=== PATIENT | male | born 1995 | race Caucasian/White ===

== ENCOUNTER 2020-02-08 16:11 | Emergency (ER) | payer BC, SELFPAY ==
[2020-02-08 16:17] VITALS: BP 131/83; PULSE 120; RESP 16; TEMP 36.5; O2SAT 97
[2020-02-08 16:20] VITALS: RESP 16
[2020-02-08 17:20] LABS: Abs Immature Grans 0.02 k/cumm (0.0-0.09); Absolute Basophil Count 0.07 k/cumm (0.0-0.2); Absolute Eosinophil Count 0.61 k/cumm (0.0-0.7); Absolute Lymphocyte Count 3.29 k/cumm (1.2-3.4); Absolute Neutrophil Count 4.03 k/cumm (1.2-6.7); Basophils % 0.8; Eosinophils % 6.9; HCT 47.8 % (40.0-50.0); HGB 16.9 g/dL (13.5-17.5); Immature Grans % 0.2 %; Lymphocytes % 37.3; Mean Corp. HGB Concentration 35.4 g/dL (32.0-36.0); Mean Corpuscular Hemoglobin 29.2 pg (27.0-33.0); Mean Corpuscular Volume 82.7 fL (80-95); Mean Platelet Volume 10.1 fL (8.0-11.0); Monocytes % 9.1; Neutrophils % 45.7; Platelet Count 255 x1000/uL (130-400); RBC 5.78 m/cumm (4.50-6.00); RBC Distribution Width 12.7 % (11.8-14.1); White Blood Cell Count 8.82 k/cumm (4.4-10.8)
[2020-02-08 17:33] LABS: ALT 27 U/L (16-63); AST 16 U/L (15-37); Albumin 4.4 g/dL (3.4-5.0); Alkaline Phosphatase 50 U/L (46-116); Anion Gap 8.2 mmol/L (3-11); BUN 13 mg/dL (7-18); Bilirubin, Total 0.4 mg/dL (0.2-1.0); CO2 28.8 mmol/L (21.0-32.0); CREATININE 0.85 mg/dL (0.70-1.30); Calcium 9.2 mg/dL (8.5-10.1); Chloride 102 mmol/L (98-107); Glucose 88 mg/dL (74-106); Potassium 3.5 mmol/L (3.5-5.1); Sodium 139 mmol/L (136-145); Total Protein 7.8 g/dL (6.4-8.2)
--- NOTE | 2020-02-08 17:36 | W.ED.GENAD ---
Discharge Plan Disposition Patient Disposition: HOME Condition: Stable Discharge Details Chief Complaint: GenMedical Clinical Impression: Anxiety Primary Care Provider: None,None ED Provider: Alise Pickard Home Meds and New Rx's Prescriptions: New ondansetron HCl [Zofran] 4 mg tablet 4 mg PO Q8H PRN (Reason: nausea and vomiting) Qty: 7 RF: 0 Discharge Instructions Instructions: Anxiety (ED) Additional Instructions: Please try to maintain a regular sleep pattern. I encourage at least 3 days of outdoor activity. Follow-up with outpatient counselor as discussed. Use nausea medication as needed for severe nausea associated with anxiety if deferring you from eating as discussed. For worsening symptoms, safety concerns, continued or alarming weight loss or abdominal complaints have reevaluation in the emergency room. Please follow-up with an outpatient primary care doctor. We will help arrange for local primary care doctor. Return if needed sooner for alarming or worsening concerns Stand Alone Forms: Work Release Medical Decision Making Is a very pleasant 25-year-old patient presenting to the emergency room for concerns of weight loss. After long discussion with the patient he reveals that he is undergoing significant stress and anxiety recently. Patient reports he is transitioning from male to female in the last 2 months. 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 Patient reports he is working second shift and hours are quite late he is standing for long periods of time. Patient reports stress dealing with the public during Covid which is also causing increased anxiety. Patient is also frustrated as people as they come through the drive-through are identifying him as a mail when he feels they should be identifying him as a female. Patient reports a very different sleep pattern as he is up very late working his new job. Patient reports baseline anxiety and depression for which she has worked with mental health for years however has not been working with a counselor recently as he prefers [id number] interactions and has struggled finding a counselor that he works well with. Patient reports he has many coping skills and feels comfortable managing his anxiety predominantly using marijuana, THC or CBD. Patient has been on medication previously but he found unwanted side effects and prefers the use of THC or CBD. Patient reports he does note nausea and occasional diarrhea when feeling anxious. Patient reports he has experienced some nausea and diarrhea intermittently which has sometimes interfered with his ability to eat when he is finding his anxiety is severe however this is typical of what she has experienced in the past and he feels this is likely attributed to his anxiety. Patient reports he has lost approximately 10 to 20 pounds in the last few weeks. He does report he has been attempting to lose weight in certain areas due to his transition however feels the weight loss could be due to anxiety, change in sleep habits. Patient denies suicidality or homicidality. Does report chronic depression and anxiety. Declines mental health evaluation at this time and feels safe. Patient's physical exam reveals no acute abnormalities. Very benign abdominal exam. Patient is in general healthy appearing. Initial vital signs do reveal a heart rate of 120 although patient does report sensation of anxiety. We did discuss use of oral medications which patient has taken in the past however he declines any anxiety prescriptions as he would prefer to continue use of marijuana for anxiety relief. I did discuss use of marijuana with this patient at length and cautioned him regarding overuse which could in turn induce anxiety. Patient reports his understanding. We also discussed the use of prescription nausea medication which patient does consent to as he feels this would be helpful when experiencing nausea deferring him from eating. We also discussed maintaining a healthy diet as patient has been eating [employer] 5 days a week at work. During Covid they have removed majority of their healthy foods off of the menu and patient finds this to be a barrier and eating healthy. Discussed becoming more active outdoors for mental health purposes as patient is feeling extremely isolated. Patient's labs are reviewed and are normal CBC normal and CMP normal. Discussed these results with the patient. Vital signs repeated and are normal. Patient feels comfortable discharge home at this time. We will plan to provide prescription for nausea medication if needed. Patient again was offered mental health evaluation and again does not feel it is necessary this evening but after discussion does feel that arranging for an outpatient counselor could be temporarily helpful as he is dealing with significant increase in his stress and large life changes. Patient agrees to follow-up with outpatient counselor. Will contact mental health to arrange for outpatient services. Patient also has no local primary care provider. Will place patient on the primary care nurse follow-up list to arrange for local PCP as he is undergoing transition from male to female I feel having PCP assistance would be helpful especially if patient begins to undergo hormone use. Patient agrees with this plan of care. Patient feels comfortable discharge home at this time. Spoke with Jacquelyn who does have the patient in the system but has followed up with this patient. She will help arrange for outpatient services and follow-up for patient's anxiety. patient was stable and requested discharge. Prior to discharge, my usual and customary return precautions were reviewed with the patient - this included follow-up instructions and reasons to return to the Emergency Department if conditions worsens, does not improve as expected, or other new concerns arise. HPI General Date/Time Provider Initiated Documentation: 02/08/20 16:23. HPI Narrative: Is a 25-year-old patient presenting to the emergency room for complaints of weight loss. Patient reports approximately 10 to 20 pounds of weight loss noted in the last few weeks. Patient has been attempting to lose weight however is concerned due to the acute weight loss. Patient does report that he does have mild nausea which he attributes to baseline anxiety. Patient reports he has had significant life stressors in the last few months. Patient reports significant anxiety regarding Covid as he is exposed to the public. 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 Patient reports use standing for long periods of time which is a changing his normal activity as he has recently been quite sedentary prior to obtaining this job. Patient report significant change to his sleeping patterns as he is working second shift which is a challenging adjustment. Patient reports he is currently transitioning from male to female in the last 2 months. Patient reports significant anxiety regarding all of these previously mentioned changes in the last 2 months. Patient reports he is able to eat and drink without significant difficulty. He does report intermittent nausea which occasionally will divert him from eating although he denies abdominal pain when eating. Denies significant bowel changes. He does report with his anxiety he occasionally have bouts of diarrhea. Patient does report a bout of diarrhea in the last 24 hours however otherwise has been maintaining normal bowel movements. Patient denies abdominal or back pain. Denies fevers or chills. Denies difficulty breathing shortness of breath or wheezing. Patient reports he is feeling quite anxious and intermittently depressed. Patient reports he has been working with counselors since a young age but has not been working with counselors in the few months as he prefers [id number] interactions. Patient denies suicidality or homicidality. Does not feel he requires mental health evaluation at this time. Related Data Home Medications Medication Instructions Recorded Confirmed ondansetron HCl [Zofran] 4 mg PO Q8H PRN #7 tab 02/08/20 Previous Rx's Medication Instructions Recorded ondansetron HCl [Zofran] 4 mg PO Q8H PRN #7 tab 02/08/20 Allergies Allergy/AdvReac Type Severity Reaction Status Date / Time apple Allergy Mild Unverified 02/08/20 16:25 peach Allergy Mild Unverified 02/08/20 16:25 horses Allergy Severe Anaphylaxsi Uncoded 05/22/17 13:29 s animal dander Allergy Mild sneezing Uncoded 05/22/17 13:29 General Stated Complaint: GenMedical JENNIFER: 3 Review of Systems All systems reviewed & are unremarkable except as noted in HPI and below Constitutional Constitutional: Denies chills, Denies fatigue, Denies fever(s), Denies headache(s), Denies malaise and Denies poor appetite ENT Ears, Nose, Mouth, and Throat: Denies headache(s), Denies nasal discharge and Denies sore throat Cardiovascular Cardiovascular: Denies dyspnea Respiratory Respiratory: Denies cough, Denies dyspnea and Denies wheezing Gastrointestinal Gastrointestinal: Denies abdominal pain, Denies diarrhea, Reports nausea and Denies vomiting Genitourinary Genitourinary: Denies dysuria, Denies urinary frequency and Denies urinary hesitancy Musculoskeletal Musculoskeletal: Denies back pain Neurologic Neurologic: Denies headache(s) Psychiatric Psychiatric: Reports abnormal sleep pattern, Reports anxiety, Reports depression, Denies difficulty concentrating, Reports mood swings, Denies panic attacks, Denies paranoia, Denies homicidal ideation and Denies suicidal ideation Endocrine Endocrine: Denies fatigue Allergic/Immunologic Allergic/Immunologic: Denies wheezing PFSH Social History Smoking/Tobacco Use Status: Current every day Tobacco Type: cigarettes Alcohol Intake: current Alcohol Intake frequency: holidays/special occasions only Drug use: Occasionally Substance use type: marijuana Do you feel safe at home: Yes Do you feel safe in your relationship?: Yes Exam Narrative Exam Narrative: CONST: Healthy appearing patient, in no acute distress. Well hydrated. Alert and oriented. HENMT: Head nomocephalic, normal to inspection. Atraumatic. Hearing grossly normal. Mild pharyngeal erythema present without exudates. EYES: General normal appearance. Alignment normal. Eyelids normal. Conjunctiva normal. NECK: Normal visual inspection. FROM. Trachea midline. No Midline tenderness. CHEST: Normal insepection of the chest. RESP: Normal respiratory effort. Speaking full sentences. No cough. No audible wheezing. No retractions. Breath sounds clear, full and equal bilaterally. No wheezing, rhonchi or rales. CARDIO: No JVD. No murmur. Regular rate and rhythm GI: Bowel sounds present in all 4 quadrants. Abdomen is soft, nontender. No peritoneal signs, rebound or guarding. Back: No CVA tenderness noted bilaterally NEURO: Alert and awake. Speech clear. PSYCH: Normal affect. Cooperative. Course Vital Signs Vital signs: Vital Signs Temperature 36.5 C 02/08/20 16:17 Pulse 120 H 02/08/20 16:17 Respiratory Rate 16 02/08/20 16:17 Blood Pressure 131/83 02/08/20 16:17 Pulse Oximetry 97 02/08/20 16:17 Temperature 36.5 C 02/08/20 16:17 Temperature Source Tympanic 02/08/20 16:17 Pulse 120 H 02/08/20 16:17 Respiratory Rate 16 02/08/20 16:20 Respiratory Effort Non-Labored 02/08/20 16:20 Respiratory Depth Normal 02/08/20 16:20 Respiratory Pattern Normal 02/08/20 16:20 Blood Pressure 131/83 02/08/20 16:17 Blood Pressure Position Sitting 02/08/20 16:17 Pulse Oximetry 97 02/08/20 16:17 Oxygen Delivery Method Room Air 02/08/20 16:17 Oxygen Flow Rate 0 02/08/20 16:17 Pain Level 0 02/08/20 16:17 Lab/Test Results Lab/Test Results: Laboratory Tests Range/Units 02/08/20 17:10 WBC (4.4-10.8) k/cumm 8.82 RBC (4.50-6.00) m/cumm 5.78 Hgb (13.5-17.5) g/dL 16.9 Hct (40.0-50.0) % 47.8 MCV (80-95) fL 82.7 MCH (27.0-33.0) pg 29.2 MCHC (32.0-36.0) g/dL 35.4 RDW (11.8-14.1) % 12.7 Plt Count (130-400) x1000/uL 255 MPV (8.0-11.0) fL 10.1 Immature Gran % % 0.2 Neutrophils % 45.7 Lymphocytes % 37.3 Monocytes % 9.1 Eosinophils % 6.9 Basophils % 0.8 Absolute Neutrophils (1.2-6.7) k/cumm 4.03 Absolute Lymphocytes (1.2-3.4) k/cumm 3.29 Absolute Monocytes (0.11-0.7) k/cumm 0.80 H Absolute Eosinophils (0.0-0.7) k/cumm 0.61 Absolute Basophils (0.0-0.2) k/cumm 0.07
[2020-02-08 17:50] VITALS: BP 106/65; PULSE 65; RESP 16; TEMP 36.8; O2SAT 98
--- NOTE | 2020-02-08 18:00 | NUR.NOTE ---
referred to CM for PCP within a week. 02/08/2020 Nursing Note:
--- NOTE | 2020-02-10 10:18 | PDOC.ERCMACT ---
- If Service Date Differs Date of service: 02/10/20 Time of Service: 10:18 Care Management Activity Note At the request of ED provider, CM coordinates referral to [facility] to assist patient in establishing care with a primary care physician.
== END 2020-02-08 18:09 | disposition home or self-care (01) ==
PROVIDERS: Emergency Provider Physician Assistant; PCP Nurse Practitioner Adult Health
DX: F41.8 Other specified anxiety disorders (principal)
CPT/HCPCS: 36415; 80053; 99284; 85025

== ENCOUNTER 2020-06-19 17:54 | Emergency (ER) | payer SELFPAY ==
--- NOTE | 2020-06-19 17:58 | ED.GENADUL_ITS ---
Discharge Plan Disposition Patient Disposition: HOME Condition: Good Discharge Details Chief Complaint: HeadInjury Clinical Impression: Contusion of head Primary Care Provider: Floridalma Cardenas ED Provider: Areli Malik Home Meds and New Rx's Prescriptions: No Action No Known Home Meds RF: 0 Discharge Instructions Instructions: Contusion in Adults (ED) Additional Instructions: Your exam is reassuring today. You are cleared to go back to work. He may use Tylenol and/or ibuprofen as needed if you develop any recurrent discomfort. Please follow-up with primary care as needed. If he develop any new or worsening symptoms please seek care urgently once again. Referrals: Floridalma Cardenas, CONVERSION DEVELOPER [Primary Care Provider] - Discharge Data Discharge Date/Time-TO BE ENTERED AT DEPARTURE: 06/19/20 18:20 Medical Decision Making Patient is a 25-year-old male presents today with chief complaint of striking head while at work yesterday. Patient reports that repetitively struck his head against the corner of a shelf. No loss of consciousness. States that at that time, after the third time, she experienced some lightheadedness of dizziness. However, the symptoms have totally resolved. No complaints today. Denies any headache or visual changes. No nausea or vomiting. Is not noted any focal weakness. No other injury extremity incident. Neurologic exam is intact. No evidence of trauma on exam. Patient is primarily here for work note as he left early yesterday. Will give work note and discharged home. He is given return precautions. All questions/concerns were addressed, he is in agreement with this plan. HPI General Mode of arrival: ambulatory . Date/Time Provider Initiated Documentation: 06/19/20 17:58 . Limitations to Documentation: no limitations . Information obtained by: patient and RN notes reviewed . History of Present Illness 25 year old M presents to the emergency department with the chief complaint of struck head at work yesterday, described as mild (denies any pain or other symptoms), and is localized to the head. Patient reports no radiation. Patient started experiencing this day(s) (1) and it has been now resolved. No relieving factors improve symptom(s), No exacerbating factors reported . Patient notes no other symptoms.. Patient did receive the following treatments prior to arrival, none Related Data Home Medications Medication Instructions Recorded Confirmed Unknown [No Known Home Meds] 06/19/20 06/19/20 Allergies Allergy/AdvReac Type Severity Reaction Status Date / Time apple Allergy Mild Unverified 06/19/20 18:20 peach Allergy Mild Unverified 06/19/20 18:20 horses Allergy Severe Anaphylaxsi Uncoded 06/19/20 18:20 s animal dander Allergy Mild sneezing Uncoded 06/19/20 18:20 General JENNIFER: 3 Review of Systems Constitutional Constitutional: Reports as per HPI, Denies chills, Reports fatigue, Denies fever(s), Denies frequent falls, Reports headache(s), Denies snoring and Denies weakness Eyes Eyes: Reports as per HPI, Denies blurry vision, Denies change in vision and Reports photophobia ENT Ears, Nose, Mouth, and Throat: Denies vertigo, Reports headache(s) and Denies neck pain Cardiovascular Cardiovascular: Reports as per HPI, Denies chest pain, Denies lightheadedness, Denies radiating jaw, neck or arm pain, Denies dyspnea and Denies dyspnea on exertion Respiratory Respiratory: Reports as per HPI, Denies chest congestion, Denies cough, Denies dyspnea, Denies dyspnea on exertion, Denies snoring, Denies stridor and Denies wheezing Gastrointestinal Gastrointestinal: Reports as per HPI, Denies abdominal pain, Denies change in bowel habits, Denies nausea and Denies vomiting Genitourinary Genitourinary: Reports system reviewed and no additional complaints, except as documented (denies change in urinary habits) Musculoskeletal Musculoskeletal: Reports as per HPI, Denies back pain, Denies myalgias, Denies muscle cramps, Denies neck pain and Denies numbness Integumentary/Breasts Skin/Breast: Reports as per HPI and Denies rash Neurologic Neurologic: Reports as per HPI, Denies abnormal movements, Denies abnormal speech, Denies behavioral changes, Denies confusion, Denies vertigo, Denies frequent falls, Reports headache(s), Denies localized weakness, Denies numbness, Denies sensory deficit and Denies weakness Psychiatric Psychiatric: Denies behavioral changes and Denies confusion Endocrine Endocrine: Reports fatigue Allergic/Immunologic Allergic/Immunologic: Denies wheezing PFSH Medical History (Updated 06/19/20 @ 18:08 by HANNAH Hernandes) Anxiety (Inactive) Social History (Reviewed 02/15/20 @ 16:54 by GEORGINA Castro Smoking/Tobacco Use Status: Current every day Tobacco Type: cigarettes Alcohol Intake: current Alcohol Intake frequency: holidays/special occasions only Drug use: Occasionally Substance use type: marijuana current occupation: [employer] Current gender identity: trans [id number] Other: Uses she/her pronouns Do you feel safe at home: Yes Do you feel safe in your relationship?: Yes Exam Const General: cooperative, healthy appearing, comfortable, no acute distress, well developed and well groomed Nutritional Appearance: average body habitus and well nourished Orientation: alert, awake and oriented x3 HENMT Head: normal to inspection, no palpable skull fracture, normocephalic and atraumatic Ears: hearing grossly normal bilaterally, external ears normal and TM's normal bilaterally General nose exam: external nose normal Mouth: oral mucosae normal and moist mucous membranes Throat: posterior oropharynx normal Eyes General: appearance normal, both eyes and all related structures Alignment and Position: alignment normal Periorbital: periorbital findings normal Eyelids: eyelids normal Sclera: sclerae normal Cornea: corneas normal Pupils: PERRL EOM: EOM intact bilaterally Neck Neck: normal visual inspection, full ROM, no lymphadenopathy and no meningeal signs Resp Effort & Inspection: normal respiratory effort, able to speak in complete sentences and no respiratory distress Auscultation: clear to auscultation bilaterally, no rales, no rhonchi and no wheezes Cardio Rate: regular rate Rhythm: regular rhythm Heart Sounds: S1 normal and S2 normal GI Inspection: normal to inspection and non-distended Palpation: soft, no hepatosplenomegaly, not firm, no guarding, not rigid and nontender Percussion: normal to percussion Auscultation: normal bowel sounds Back/Spine/Pelvis Cervical Spine: normal cervical lordosis and cervical ROM normal Skin General skin exam: no rashes or lesions noted Neuro General: patient alert, patient awake and patient oriented x3 Cranial Nerves: CN's II-XI intact bilaterally Cognition: normal cognition Speech: speech normal Gait: normal gait Motor: muscle tone normal throughout, strength 5/5 throughout, no pronator drift, no movement abnormalities noted and no fasciculations Sensory Exam: no sensory deficits noted Coordination: [id number] test normal and [id number] test normal Extrem General: normal to inspection, capillary refill normal, no pedal edema and no calf tenderness Psych Appearance: grossly normal and well kempt Mental Status: mental status grossly normal Speech and Movement: speech and movement normal
[2020-06-19 18:12] VITALS: BP 120/83; PULSE 85; RESP 16; TEMP 36.6; O2SAT 97
== END 2020-06-19 18:20 | disposition home or self-care (01) ==
LOC: ER 18:30
PROVIDERS: Emergency Provider Physician Assistant; PCP Nurse Practitioner Adult Health
DX: S00.93XA Contusion of unspecified part of head, initial encounter (principal); W22.09XA Striking against other stationary object, initial encounter; R42 Dizziness and giddiness; R11.0 Nausea; Z02.79 Encounter for issue of other medical certificate
CPT/HCPCS: 99282; 99283

== ENCOUNTER 2020-07-04 13:08 | Emergency (ER) | payer OTHER, SELFPAY ==
[2020-07-04 13:17] VITALS: BP 122/72; PULSE 98; RESP 18; TEMP 36.8; O2SAT 98
--- NOTE | 2020-07-04 13:18 | ED.GENADUL_ITS ---
Discharge Plan Disposition Patient Disposition: HOME Condition: Stable Discharge Details Clinical Impression: Fatigue, Poor sleep pattern Primary Care Provider: Floridalma Cardenas ED Provider: Indigo Galarza Home Meds and New Rx's Prescriptions: No Action No Known Home Meds RF: 0 Discharge Instructions Instructions: Fatigue (ED) Additional Instructions: Drink plenty of fluids and get plenty of rest. You can try Benadryl at night to help you with sleep. Follow up with your primary care doctor in 1 week as needed. Return to the emergency department with any worsening or new concerning symptoms. Stand Alone Forms: Work Release Discharge Data Discharge Physician: Indigo Galarza Medical Decision Making 25-year-old male who identifies as female presents for return to work note for insomnia and fatigue for the past few days. No complaints of fever. Vitals within normal limits. She appears nontoxic. Normal ENT exam. Lungs clear. Abdomen soft nontender. No meningeal signs. Do not see an indication for labs or imaging. Patient given a work note. Discussed with patient that I do not see an indication for further work-up of his cause of fatigue as it appears it is likely associated with this poor sleep pattern. Advised to follow better practices for adequate sleep. Advised to follow up with the primary care doctor for re-evaluation. Usual and customary return precautions given prior to discharge. Medical Records Medical records reviewed: Yes I reviewed the patient's medical records. HPI General Mode of arrival: ambulatory . Date/Time Provider Initiated Documentation: 07/04/20 13:13 . Limitations to Documentation: no limitations . Information obtained by: patient . HPI Narrative: Patient is a 25-year-old male who identifies as female who presents for a work note after calling out of work yesterday for fatigue. Patient states he works in [email or web address] for the past 6 months and states he is standing all day long and has not been used to this. Patient states he has a poor sleep pattern and that he gets roughly 3 to 4 hours of sleep at night. Patient states he falls asleep late and wakes up early and cannot fall back asleep. He thinks this is contributing to his feeling of fatigue. He denies any fever, tick bite, headache, sore throat, ear pain, neck pain, cough, chest pain, shortness of breath, abdominal pain, vomiting, diarrhea or urinary symptoms. He denies any recent travel or known sick contacts. He denies any chronic medications. Related Data Home Medications Medication Instructions Recorded Confirmed Unknown [No Known Home Meds] 06/19/20 07/04/20 Allergies Allergy/AdvReac Type Severity Reaction Status Date / Time apple Allergy Mild Unverified 07/04/20 13:22 peach Allergy Mild Unverified 07/04/20 13:22 horses Allergy Severe Anaphylaxsi Uncoded 07/04/20 13:22 s animal dander Allergy Mild sneezing Uncoded 07/04/20 13:22 General JENNIFER: 3 Review of Systems All systems reviewed & are unremarkable except as noted in HPI and below Constitutional Constitutional: Reports as per HPI, Denies chills, Reports fatigue and Denies fever(s) Eyes Eyes: Denies blurry vision ENT Ears, Nose, Mouth, and Throat: Denies dizziness, Denies sore throat and Denies throat swelling Cardiovascular Cardiovascular: Denies chest pain and Denies dyspnea Respiratory Respiratory: Denies cough and Denies dyspnea Gastrointestinal Gastrointestinal: Denies abdominal pain, Denies diarrhea and Denies vomiting Genitourinary Genitourinary: Denies hematuria and Denies dysuria Musculoskeletal Musculoskeletal: Denies back pain and Denies numbness Integumentary/Breasts Skin/Breast: Denies lesions and Denies rash Neurologic Neurologic: Denies dizziness, Denies localized weakness and Denies numbness Endocrine Endocrine: Reports fatigue Allergic/Immunologic Allergic/Immunologic: Denies throat swelling [facility] Medical History (Updated 07/04/20 @ 13:46 by Indigo Galarza DO) Anxiety Social History Smoking/Tobacco Use Status: Current-Occasional Tobacco Type: cigarettes Alcohol Intake: current Alcohol Intake frequency: holidays/special occasions only Drug use: Daily Substance use type: marijuana current occupation: [employer] Current gender identity: trans [id number] Other: Uses she/her pronouns Do you feel safe at home: Yes Do you feel safe in your relationship?: Yes Exam Const General: cooperative, healthy appearing and no acute distress Orientation: alert, awake and oriented x3 HENMT Head: normal to inspection Ears: hearing grossly normal bilaterally, external ears normal and TM's normal bilaterally General nose exam: external nose normal Face and sinus: normal facial exam Mouth: oral mucosae normal Teeth and gingiva: dentition normal Throat: posterior oropharynx normal Eyes General: appearance normal, both eyes and all related structures Eyelids: eyelids normal Pupils: PERRL EOM: EOM intact bilaterally Neck Neck: normal visual inspection Lymphatic: no lymphadenopathy noted Chest Chest: normal inspection of the chest Resp Effort & Inspection: normal respiratory effort and able to speak in complete sentences Auscultation: clear to auscultation bilaterally Cardio Rate: regular rate Rhythm: regular rhythm GI Inspection: normal to inspection Palpation: soft, not firm, no guarding, no hepatosplenomegaly, no masses and nontender Auscultation: normal bowel sounds Skin General skin exam: no rashes or lesions noted Neuro General: patient alert and patient awake Cognition: normal cognition Speech: speech normal Gait: normal gait Motor: muscle tone normal throughout Sensory Exam: no sensory deficits noted Extrem General: normal to inspection, full ROM and capillary refill normal Psych Appearance: grossly normal Mental Status: mental status grossly normal Speech and Movement: speech and movement normal Affect: normal affect Thought Process: normal
== END 2020-07-04 13:58 | disposition home or self-care (01) ==
PROVIDERS: Emergency Provider Physician Assistant; PCP Nurse Practitioner Adult Health
DX: R53.83 Other fatigue (principal); Z72.821 Inadequate sleep hygiene; Z02.79 Encounter for issue of other medical certificate
CPT/HCPCS: 99282; 99283

== ENCOUNTER 2020-08-10 14:41 | Emergency (ER) | payer SELFPAY ==
[2020-08-10 14:48] VITALS: BP 126/72; PULSE 109; RESP 16; TEMP 37; O2SAT 97
--- NOTE | 2020-08-10 14:55 | W.ED.GENAD ---
Discharge Plan Disposition Patient Disposition: HOME Condition: Stable Discharge Details Clinical Impression: URI with cough and congestion Primary Care Provider: Floridalma Cardenas ED Provider: Indigo Galarza Home Meds and New Rx's Prescriptions: No Action No Known Home Meds RF: 0 Discharge Instructions Instructions: Upper Respiratory Infection (ED) Additional Instructions: Drink plenty of fluids and get plenty of rest. Alternate tylenol and motrin as needed and directed for pain. You can try [id number] cough and cold medications such as DayQuil, NyQuil, Sudafed or Robitussin as directed for your nasal congestion, cough and sore throat. Follow-up with your primary care doctor in 1 week. Return to the emergency department with any worsening or new concerning symptoms. Stand Alone Forms: Work Release Discharge Data Discharge Date/Time-TO BE ENTERED AT DEPARTURE: 08/10/20 15:30 Discharge Physician: Indigo Galarza Medical Decision Making 25-year-old male who identifies as female with a history of anxiety and depression presents for runny nose, nasal congestion, sore throat and cough for the past few days. Denies fever, chest pain, shortness of breath or vomiting. Heart rate minimally elevated on arrival which resolved upon my evaluation. Minimally erythematous posterior oropharynx without exudates. No drooling, trismus or submandibular swelling. Lungs clear. Abdomen soft nontender. Rapid strep negative. Suspect most likely viral URI. Do not see an indication for any lab work or imaging. Patient states he called out of work and needs a work note. Advised to follow up with the primary care doctor for re-evaluation. Usual and customary return precautions given prior to discharge. Medical Records Medical records reviewed: Yes I reviewed the patient's medical records. HPI General Mode of arrival: ambulatory. Date/Time Provider Initiated Documentation: 08/10/20 14:42. Limitations to Documentation: no limitations. Information obtained by: patient. HPI Narrative: Patient is a 25-year-old male who identifies as female with a history of anxiety and depression who presents with a complaint of runny nose, nasal congestion, sore throat and cough since yesterday. Patient states he is a chronic smoker and has a chronic smoker's cough but states this is the worse than usual. He states at baseline he occasionally coughs up green or brown sputum. 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 He denies any known fever, headache, neck pain, chest pain, shortness of breath or abdominal pain. He states he called out of work for today due to his symptoms. Related Data Home Medications Medication Instructions Recorded Confirmed Unknown [No Known Home Meds] 06/19/20 08/10/20 Allergies Allergy/AdvReac Type Severity Reaction Status Date / Time apple Allergy Mild Unverified 08/10/20 14:51 peach Allergy Mild Unverified 08/10/20 14:51 horses Allergy Severe Anaphylaxsi Uncoded 08/10/20 14:51 s animal dander Allergy Mild sneezing Uncoded 08/10/20 14:51 General Stated Complaint: Sorethroat JENNIFER: 3 Review of Systems All systems reviewed & are unremarkable except as noted in HPI and below Constitutional Constitutional: Reports as per HPI, Denies chills and Denies fever(s) Eyes Eyes: Denies blurry vision ENT Ears, Nose, Mouth, and Throat: Denies dizziness, Reports nasal congestion, Reports nasal discharge, Reports sore throat and Denies throat swelling Cardiovascular Cardiovascular: Denies chest pain and Denies dyspnea Respiratory Respiratory: Reports cough and Denies dyspnea Gastrointestinal Gastrointestinal: Denies abdominal pain, Denies diarrhea and Denies vomiting Genitourinary Genitourinary: Denies hematuria and Denies dysuria Musculoskeletal Musculoskeletal: Denies back pain and Denies numbness Integumentary/Breasts Skin/Breast: Denies lesions and Denies rash Neurologic Neurologic: Denies dizziness, Denies localized weakness and Denies numbness Allergic/Immunologic Allergic/Immunologic: Denies throat swelling [facility] Medical History (Updated 08/10/20 @ 15:23 by Indigo Galarza DO) Anxiety Social History Smoking/Tobacco Use Status: Current-Occasional Tobacco Type: cigarettes Alcohol Intake: current Alcohol Intake frequency: holidays/special occasions only Drug use: Daily Substance use type: marijuana current occupation: [employer] Current gender identity: trans [id number] Other: Uses she/her pronouns Do you feel safe at home: Yes Do you feel safe in your relationship?: Yes Exam Const General: cooperative, healthy appearing and no acute distress HENMT Head: normal to inspection Ears: hearing grossly normal bilaterally, external ears normal and TM's normal bilaterally Face and sinus: normal facial exam Mouth: oral mucosae normal Throat: posterior oropharynx normal Eyes General: appearance normal, both eyes and all related structures Pupils: PERRL EOM: EOM intact bilaterally Neck Neck: normal visual inspection and No submandibular swelling Lymphatic: no lymphadenopathy noted Chest Chest: no tenderness Other: Bilateral breast augmentation Resp Effort & Inspection: normal respiratory effort and able to speak in complete sentences Auscultation: clear to auscultation bilaterally Cardio Rate: regular rate Rhythm: regular rhythm GI Inspection: normal to inspection Palpation: soft, not firm, not rigid and nontender Auscultation: normal bowel sounds Skin General skin exam: no rashes or lesions noted Neuro General: patient alert, patient awake, patient oriented x3, gait normal, moves all extremities, no meningeal signs and no focal motor deficits Cognition: normal cognition Speech: speech normal Motor: muscle tone normal throughout Sensory Exam: no sensory deficits noted Extrem General: normal to inspection, full ROM, capillary refill normal, no calf tenderness bilaterally and no edema Psych Appearance: grossly normal Mental Status: mental status grossly normal Speech and Movement: speech and movement normal Affect: normal affect Course Vital Signs Vital signs: Vital Signs Temperature 98.6 F 08/10/20 14:48 Pulse 109 H 08/10/20 14:48 Respiratory Rate 16 08/10/20 14:48 Blood Pressure 126/72 08/10/20 14:48 Pulse Oximetry 97 08/10/20 14:48 Temperature 98.6 F 08/10/20 14:48 Temperature Source Tympanic 08/10/20 14:48 Pulse 109 H 08/10/20 14:48 Respiratory Rate 16 08/10/20 14:48 Respiratory Effort Non-Labored 08/10/20 14:50 Blood Pressure 126/72 08/10/20 14:48 Blood Pressure Position Sitting 08/10/20 14:48 Pulse Oximetry 97 08/10/20 14:48 Oxygen Delivery Method Room Air 08/10/20 14:48 Oxygen Flow Rate 0 08/10/20 14:48 Pain Level 0 08/10/20 14:48
== END 2020-08-10 15:30 | disposition home or self-care (01) ==
PROVIDERS: Emergency Provider Physician Assistant; PCP Nurse Practitioner Adult Health
DX: J02.8 Acute pharyngitis due to other specified organisms (principal); J06.9 Acute upper respiratory infection, unspecified; R05 Cough; R09.81 Nasal congestion
CPT/HCPCS: 87880; 99282; 87081; 99283

== ENCOUNTER 2020-10-31 11:25 | Emergency (ER) | payer SELFPAY ==
[2020-10-31 11:28] VITALS: BP 134/78; PULSE 88; RESP 16; TEMP 36.8; O2SAT 99
--- NOTE | 2020-10-31 11:47 | ED.GENADUL_ITS ---
Discharge Plan Disposition Patient Disposition: HOME Condition: Stable Discharge Details Clinical Impression: Fatigue Primary Care Provider: Floridalma Cardenas ED Provider: Anne Solomon Home Meds and New Rx's Prescriptions: No Action No Known Home Meds RF: 0 Discharge Instructions Instructions: Fatigue (ED) Additional Instructions: Follow up with primary care provider in 3-5 days. Return to ED sooner if any worsening or concerns. Increase oral fluids. Decrease your stress And rest. Do follow-up with your primary care provider. I will place you on a [facility] follow-up list to facilitate your follow-up appointment. Stand Alone Forms: Work Release Referrals: Floridalma Cardenas, ACCOUNTING COORDINATOR [Primary Care Provider] - Discharge Data Discharge Date/Time-TO BE ENTERED AT DEPARTURE: 10/31/20 13:00 Medical Decision Making 25-year-old transgendered male presents to the ED with chief complaint of increased fatigue, nausea. Patient states that he has been working long hours and has had had increasing fatigue. Last night he did have an episode of emesis and reportedly sat down and blacked out for a couple of minutes did not have a syncopal episode did not faint or lose consciousness. He reports intermittent diarrhea. Denies any dysuria or problems urinating. He denies having any abdominal pain. He does report some mild back pain which is at his baseline. He does endorse smoking marijuana and tobacco. He has infrequent alcohol intake. He denies any fever or chills. CBC, CMP, urinalysis largely within normal limits. TSH level 2.20 Instructed patient to follow-up with primary care provider, verbalized understanding. Discussed strict return instructions. This text was generated using [employer] dictation system, please disregard any oddities of phrase or misspellings. HPI General Mode of arrival: ambulatory . Date/Time Provider Initiated Documentation: 10/31/20 11:41 . Limitations to Documentation: no limitations . Information obtained by: patient . HPI Narrative: 25-year-old transgendered male presents to the ED with chief complaint of increased fatigue, nausea. Patient states that he has been working long hours and has had had increasing fatigue. Last night he did have an episode of emesis and reportedly sat down and blacked out for a couple of minutes did not have a syncopal episode did not faint or lose consciousness. He reports intermittent diarrhea. Denies any dysuria or problems urinating. He denies having any abdominal pain. He does report some mild back pain which is at his baseline. He does endorse smoking marijuana and tobacco. He has infrequent alcohol intake. He denies any fever or chills. Related Data Home Medications Medication Instructions Recorded Confirmed Unknown [No Known Home Meds] 06/19/20 10/31/20 Allergies Allergy/AdvReac Type Severity Reaction Status Date / Time apple Allergy Mild Unverified 10/31/20 11:35 peach Allergy Mild Unverified 10/31/20 11:35 horses Allergy Severe Anaphylaxsi Uncoded 10/31/20 11:35 s animal dander Allergy Mild sneezing Uncoded 10/31/20 11:35 General Stated Complaint: GenMedical JENNIFER: 3 Review of Systems Narrative: Constitutional: Negative for weight loss, alert and oriented, well groomed, normal body habitus, appears comfortable. Reports fatigue. HEENT: Denies trauma, headaches, blurry vision, nasal discharge, sore throat, trouble swallowing. Chest: Denies chest pain, palpitations, irregular rhythm, hypertension. Respiratory: Denies Shortness of breath, cough, hemoptysis. GI: Denies abdominal pain, vomiting, constipation. Positive nausea and intermittent diarrhea. : Denies dysuria, hematuria, flank pain, rectal bleeding. Neuro: Denies dizziness, blurry vision, weakness, syncope, headache or facial numbness. Hematologic: Denies easy bruising, intolerance to heat or cold, hair loss. [facility] Medical History Anxiety Social History Smoking/Tobacco Use Status: Current-Occasional Tobacco Type: cigarettes Smoking risk assessment performed?: Yes Alcohol Intake: current Alcohol Intake frequency: holidays/special occasions only Drug use: Daily Substance use type: marijuana current occupation: [employer] Current gender identity: trans [id number] Other: Uses she/her pronouns Do you feel safe at home: Yes Do you feel safe in your relationship?: Yes Exam Narrative Exam Narrative: Constitutional: Alert and oriented x3. Appears stated age. Normal body habitus. Head: Normocephalic, no trauma. Eyes: Pupils PERRLA, Red reflex noted, EOM's intact. Eyelids symmetrical without lesions, discharge, or swelling. ENT: Bilateral TM's WNL, External ear normal to inspection, no mastoid TTP, swelling, or erythema, Nasal turbinates WNL, no nasal discharge. Normal dentition, Posterior pharynx WNL, no exudate. Chest: RRR, Normal S1, S2, distal pulses intact. Resp: Lungs clear to auscultation bilaterally, no wheezes, rales, or rhonchi. Abdomen: Soft, nondistended nontender to palpation all 4 quadrants. Musculoskeletal: Normal gait, 5/5 strength to all four extremities. Skin: No suspicious rashes or lesions. Capillary refill less than 2 sec. Neurologic: Cranial nerves II-XII intact. Alert and oriented x 3. DTR's intact. Hematologic/Lymphatic: No ecchymosis, no lymphadenopathy. Course Vital Signs Vital signs: Vital Signs Temperature 36.8 C 10/31/20 11:28 Pulse 88 10/31/20 11:28 Respiratory Rate 16 10/31/20 11:28 Blood Pressure 134/78 10/31/20 11:28 Pulse Oximetry 99 10/31/20 11:28 Temperature 36.8 C 10/31/20 11:28 Temperature Source Skin 10/31/20 11:28 Pulse 88 10/31/20 11:28 Respiratory Rate 16 10/31/20 11:28 Respiratory Effort 10/31/20 11:35 Blood Pressure 134/78 10/31/20 11:28 Blood Pressure Position Sitting 10/31/20 11:28 Pulse Oximetry 99 10/31/20 11:28 Oxygen Delivery Method Room Air 10/31/20 11:28 Oxygen Flow Rate 0 10/31/20 11:28 Pain Level 7 10/31/20 11:28 Comment 10/31/20 11:28
[2020-10-31 12:10] LABS: Abs Immature Grans 0.03 10^3/uL (0.0-0.06); Absolute Basophil Count 0.08 10^3/uL (0.0-0.2); Absolute Eosinophil Count 0.55 10^3/uL (0.0-0.7); Absolute Lymphocyte Count 3.26 10^3/uL (1.2-3.4); Absolute Monocyte Count 0.81 10^3/uL (0.1-0.8); Absolute Neutrophil Count 5.32 10^3/uL (1.2-6.7); Basophils % 0.8; Eosinophils % 5.5; HCT 46.3 % (40.0-50.0); Immature Grans % 0.3; Lymphocytes % 32.4; MCH 29.5 pg (27.0-33.0); MCHC 34.6 % (32.0-36.0); MCV 85.4 fL (80-95); MPV 10.1 fL (8.0-11.0); Monocytes % 8.1; Neutrophils % 52.9; Nucleated RBC 0 %; Platelet Count 232 10^3/uL (130-400); RBC 5.42 10^6/uL (4.36-5.78); RDW 12.4 % (11.8-14.1); RDW-SD 38.5 fL; WBC 10.05 10^3/uL (4.4-10.8)
[2020-10-31] MEDS: Normal Saline 1,000 ML 1000 ML IV (12:10)
[2020-10-31 12:11] LABS: Bilirubin Negative (Negative); Blood Negative (Negative); Clarity Clear (Clear); Glucose Negative (Negative); Ketones Negative (Negative); Leukocyte Esterase Negative (Negative); Nitrite Negative (Negative); Specific Gravity >= 1.030 (1.005-1.025); Urobilinogen 0.2 EU/dL (Up TO 0.2)
[2020-10-31 12:22] LABS: Bacteria Rare HPF (Negative); Casts Negative LPF (Negative); Crystals Few Amorphous HPF (Negative); Epithelial Cells Few HPF (Negative); Mucus Heavy (Negative); Other Cells Rare Renal (Negative); RBC Negative HPF (0-2)
[2020-10-31 12:23] LABS: C & S Indicated? No
[2020-10-31 12:25] LABS: ALT 23 U/L (16-63); AST 14 U/L (15-37); Albumin 4.4 g/dL (3.4-5.0); Alkaline Phosphatase 59 U/L (46-116); Anion Gap 9.1 mmol/L (3-11); BUN 16 mg/dL (7-18); Bilirubin, Total 0.6 mg/dL (0.2-1.0); CO2 27.9 mmol/L (21.0-32.0); CREATININE 0.97 mg/dL (0.70-1.30); Calcium 8.9 mg/dL (8.5-10.1); Chloride 104 mmol/L (98-107); Glucose 94 mg/dL (74-106); Magnesium 2.1 mg/dL (1.8-2.4); Potassium 3.7 mmol/L (3.5-5.1); Sodium 141 mmol/L (136-145); Total Protein 7.8 g/dL (6.4-8.2)
--- NOTE | 2020-10-31 12:45 | NUR.NOTE ---
put on care managment list for a pcp and faxed jelyl Yo ed and faxedNursing Note:
== END 2020-10-31 13:00 | disposition home or self-care (01) ==
PROVIDERS: Emergency Provider Registered Nurse Emergency; PCP Nurse Practitioner Adult Health
DX: R53.83 Other fatigue (principal); R11.2 Nausea with vomiting, unspecified
CPT/HCPCS: 36415; 80053; 96360; 99284; 81003; 81015; 83735; 84443; 85025; 99283

== ENCOUNTER 2020-12-04 14:04 | Emergency (ER) | payer SELFPAY ==
[2020-12-04 14:21] VITALS: BP 136/88; PULSE 94; RESP 16; TEMP 37.5; O2SAT 100
--- NOTE | 2020-12-04 14:28 | ED.GENADUL_ITS ---
Discharge Plan Disposition Patient Disposition: HOME Condition: Improving Discharge Details Clinical Impression: Nausea and vomiting Primary Care Provider: Unknown,Unknown ED Provider: Indigo Galarza Home Meds and New Rx's Prescriptions: New famotidine [Pepcid] 20 mg tablet 20 mg PO DAILY Qty: 14 RF: 0 Discharge Instructions Instructions: Acute Nausea and Vomiting (ED) Additional Instructions: Drink plenty of fluids and get plenty of rest. Take the Pepcid daily as directed. Take Zofran as needed and directed for nausea and vomiting. Make small changes to your diet including eating smaller more frequent meals, avoiding frequent fried and fatty foods, and avoid eating late at night as this may improve some of your symptoms of nausea, vomiting, indigestion and hear tburn. You will receive a call from care management regarding a follow-up appointment with general surgery for further evaluation and consideration for upper endoscopy if your symptoms do not improve or worsen. Return immediately to the emergency department if you develop any worsening or new concerning symptoms. 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 She smokes marijuana throughout the day regularly. Vitals within normal limits. She appears in no acute distress. Abdomen soft and nontender. Discussed at length that as she appears nontoxic, without fever, nontender abdomen, process may be viral in nature, but also associated possibly with stress and her poor eating and sleeping habits. Advised that it would be beneficial to eat more frequent smaller meals, avoid excessive fried and fatty foods, and to cut back on heavy marijuana use. Labs obtained on arrival of her nurse and were unremarkable. Patient also given Pepcid, Zofran and GI cocktail and IV fluids and admitted to significant improvement of symptoms. We will send home with Zofran and a prescription for Pepcid. Patient given general surgery referral information if symptoms do not improve or worsen for reevaluation and consideration for upper endoscopy as other diagnoses include peptic ulcer disease, gastritis, esophagitis, etc. Usual and customary return precautions given prior to discharge. Medical Records Medical records reviewed: Yes I reviewed the patient's medical records. Lab Data Lab results reviewed: Yes I reviewed the patient's lab results. Labs: Laboratory Tests Range/Units 12/04/20 12/04/20 14:35 14:35 WBC (4.4-10.8) 10^3/uL 8.83 RBC (4.36-5.78) 10^6/uL 5.49 Hgb (13.5-17.5) g/dL 16.2 Hct (40.0-50.0) % 47.4 MCV (80-95) fL 86.3 MCH (27.0-33.0) pg 29.5 MCHC (32.0-36.0) % 34.2 RDW (11.8-14.1) % 12.2 Plt Count (130-400) 10^3/uL 225 MPV (8.0-11.0) fL 10.1 Immature Gran % 0.2 Neutrophils % 54.3 Lymphocytes % 31.5 Monocytes % 7.7 Eosinophils % 5.3 Basophils % 1.0 Nucleated RBC % % 0 Absolute Neutrophils (1.2-6.7) 10^3/uL 4.79 Absolute Lymphocytes (1.2-3.4) 10^3/uL 2.78 Absolute Monocytes (0.1-0.8) 10^3/uL 0.68 Absolute Eosinophils (0.0-0.7) 10^3/uL 0.47 Absolute Basophils (0.0-0.2) 10^3/uL 0.09 Sodium (136-145) mmol/L 141 Potassium (3.5-5.1) mmol/L 3.6 Chloride (98-107) mmol/L 103 Carbon Dioxide (21.0-32.0) mmol/L 27.9 Anion Gap (3-11) mmol/L 10.1 BUN (7-18) mg/dL 14 Creatinine (0.70-1.30) mg/dL 0.9 Estimated GFR/1.73 m2 (mL/min/1.73m2) >= 60.00 Glucose (74-106) mg/dL 98 Calcium (8.5-10.1) mg/dL 9.3 Total Bilirubin (0.2-1.0) mg/dL 0.5 AST (15-37) U/L 14 L ALT (16-63) U/L 25 Alkaline Phosphatase (46-116) U/L 58 Total Protein (6.4-8.2) g/dL 7.9 Albumin (3.4-5.0) g/dL 4.4 Lipase (73-393) U/L 108 HPI General Mode of arrival: ambulatory . Date/Time Provider Initiated Documentation: 12/04/20 14:07 . Limitations to Documentation: no limitations . Information obtained by: patient . HPI Narrative: Patient is a 25-year-old transgender male who identifies as female with a history of anxiety and GERD presents for nausea and vomiting since yesterday. Patient states she has vomited multiple times which is mainly her food from late last night and early this morning. Patient states she has had ongoing GI issues with nausea, vomiting and heartburn for the past year which she attributes to eating the frequent [employer] that she has at work. She states she also eats only 1 meal per day which is a large amount and usually late at night. 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 She also states that she smokes marijuana all day but has added tobacco to this regimen to offset the nausea and vomiting. She is aware of the risk of cyclic vomiting syndrome associated with frequent marijuana use. She denies any fever, chest pain, shortness of breath, abdominal pain, diarrhea, urinary symptoms, recent sick contacts, recent travel or recent antibiotics or new medications. She has been seen here before for the nausea and vomiting and given prescriptions for nausea but has not filled them due to lack of funds. Related Data Home Medications Medication Instructions Recorded Confirmed famotidine [Pepcid] 20 mg PO DAILY #14 tab 12/04/20 Previous Rx's Medication Instructions Recorded famotidine [Pepcid] 20 mg PO DAILY #14 tab 12/04/20 Allergies Allergy/AdvReac Type Severity Reaction Status Date / Time apple Allergy Mild Unverified 12/04/20 15:08 peach Allergy Mild Unverified 12/04/20 15:08 horses Allergy Severe Anaphylaxsi Uncoded 12/04/20 15:08 s animal dander Allergy Mild sneezing Uncoded 12/04/20 15:08 General Stated Complaint: Nausea/Vomit/Diar JENNIFER: 3 Review of Systems All systems reviewed & are unremarkable except as noted in HPI and below Constitutional Constitutional: Reports as per HPI, Denies chills and Denies fever(s) Eyes Eyes: Denies blurry vision ENT Ears, Nose, Mouth, and Throat: Denies dizziness, Denies sore throat and Denies throat swelling Cardiovascular Cardiovascular: Denies chest pain and Denies dyspnea Respiratory Respiratory: Denies cough and Denies dyspnea Gastrointestinal Gastrointestinal: Denies abdominal pain, Denies diarrhea and Reports vomiting Genitourinary Genitourinary: Denies hematuria and Denies dysuria Musculoskeletal Musculoskeletal: Denies back pain and Denies numbness Integumentary/Breasts Skin/Breast: Denies lesions and Denies rash Neurologic Neurologic: Denies dizziness, Denies localized weakness and Denies numbness Allergic/Immunologic Allergic/Immunologic: Denies throat swelling PFSH Medical History Anxiety Social History Smoking/Tobacco Use Status: Current-Occasional Tobacco Type: cigarettes Smoking risk assessment performed?: Yes Alcohol Intake: current Alcohol Intake frequency: holidays/special occasions only Drug use: Daily Substance use type: marijuana current occupation: [employer] Current gender identity: trans [id number] Other: Uses she/her pronouns Do you feel safe at home: Yes Do you feel safe in your relationship?: Yes Exam Const General: cooperative and no acute distress Orientation: alert, awake and oriented x3 HENMT Head: normal to inspection Face and sinus: normal facial exam Eyes General: appearance normal, both eyes and all related structures EOM: EOM intact bilaterally Neck Neck: normal visual inspection and No submandibular swelling Lymphatic: no lymphadenopathy noted Chest Chest: normal inspection of the chest and no tenderness Resp Effort & Inspection: normal respiratory effort and able to speak in complete sentences Auscultation: clear to auscultation bilaterally Cardio Rate: regular rate Rhythm: regular rhythm GI Inspection: normal to inspection Palpation: soft, not firm, not rigid and nontender Auscultation: normal bowel sounds Skin General skin exam: no rashes or lesions noted Neuro General: patient alert, patient awake and patient oriented x3 Cognition: normal cognition Speech: speech normal Motor: muscle tone normal throughout Sensory Exam: no sensory deficits noted Extrem General: normal to inspection, full ROM, capillary refill normal, no calf tenderness bilaterally and no edema Psych Appearance: grossly normal Mental Status: mental status grossly normal Speech and Movement: speech and movement normal Affect: normal affect Course Vital Signs Vital signs: Vital Signs Temperature 99.5 F 12/04/20 14:21 Pulse 94 H 12/04/20 14:21 Respiratory Rate 16 12/04/20 14:21 Blood Pressure 136/88 12/04/20 14:21 Pulse Oximetry 100 12/04/20 14:21 Temperature 99.5 F 12/04/20 14:21 Temperature Source Temporal Artery Scan 12/04/20 14:21 Pulse 94 H 12/04/20 14:21 Respiratory Rate 16 12/04/20 14:21 Respiratory Effort 12/04/20 14:27 Blood Pressure 136/88 12/04/20 14:21 Blood Pressure Position Sitting 12/04/20 14:21 Pulse Oximetry 100 12/04/20 14:21 Oxygen Delivery Method Room Air 12/04/20 14:21 Oxygen Flow Rate 0 12/04/20 14:21 Pain Level 0 12/04/20 14:21
[2020-12-04] MEDS: Normal Saline 1,000 ML 1000 ML IV (14:40)
[2020-12-04] MEDS: Ondansetron 4 MG/2 ML VIAL IVP (14:59)
[2020-12-04 15:01] LABS: Abs Immature Grans 0.02 10^3/uL (0.0-0.06); Absolute Basophil Count 0.09 10^3/uL (0.0-0.2); Absolute Eosinophil Count 0.47 10^3/uL (0.0-0.7); Absolute Lymphocyte Count 2.78 10^3/uL (1.2-3.4); Absolute Monocyte Count 0.68 10^3/uL (0.1-0.8); Absolute Neutrophil Count 4.79 10^3/uL (1.2-6.7); Eosinophils % 5.3; HCT 47.4 % (40.0-50.0); HGB 16.2 g/dL (13.5-17.5); Immature Grans % 0.2; Lymphocytes % 31.5; MCH 29.5 pg (27.0-33.0); MCHC 34.2 % (32.0-36.0); MCV 86.3 fL (80-95); MPV 10.1 fL (8.0-11.0); Monocytes % 7.7; Neutrophils % 54.3; Nucleated RBC 0 %; Platelet Count 225 10^3/uL (130-400); RBC 5.49 10^6/uL (4.36-5.78); RDW 12.2 % (11.8-14.1); RDW-SD 38.6 fL; WBC 8.83 10^3/uL (4.4-10.8)
[2020-12-04] MEDS: FAMOTIDINE 20 MG/50 ML BAG 200 MG IVPB (15:02)
[2020-12-04 15:15] LABS: ALT 25 U/L (16-63); AST 14 U/L (15-37); Albumin 4.4 g/dL (3.4-5.0); Alkaline Phosphatase 58 U/L (46-116); Anion Gap 10.1 mmol/L (3-11); BUN 14 mg/dL (7-18); Bilirubin, Total 0.5 mg/dL (0.2-1.0); CO2 27.9 mmol/L (21.0-32.0); CREATININE 0.9 mg/dL (0.70-1.30); Calcium 9.3 mg/dL (8.5-10.1); Chloride 103 mmol/L (98-107); Glucose 98 mg/dL (74-106); Lipase 108 U/L (73-393); Potassium 3.6 mmol/L (3.5-5.1); Sodium 141 mmol/L (136-145); Total Protein 7.9 g/dL (6.4-8.2)
[2020-12-04] MEDS: Ondansetron O.D.T. 4 MG TABEF, 3 TABS/BTL PO (16:09)
[2020-12-04 16:15] VITALS: BP 104/63; PULSE 61; RESP 16; O2SAT 99
== END 2020-12-04 16:23 | disposition home or self-care (01) ==
PROVIDERS: Emergency Provider Physician Assistant
DX: R11.2 Nausea with vomiting, unspecified (principal); Z56.6 Other physical and mental strain related to work
CPT/HCPCS: 80053; 83690; 96361; 96365; 96375; 99284; 85025; J2405

== ENCOUNTER 2021-01-09 01:17 | Emergency (ER) | payer SELFPAY ==
--- NOTE | 2021-01-09 01:15 | DI.CT_ITS ---
EXAM: CT CHEST PE ABD PELVIS W CLINICAL HISTORY: right sided chest and abdomen/back pain. TECHNIQUE: Imaging Protocol: Axial CT angiography was performed with multi-slice acquisition and m ulti-planar and/or 3D reconstructions. CONTRAST MATERIAL: Oral: None Intravenous: Omnipaque 350 Contrast volume: 61 cc COMPARISON: No exams were available for comparison FINDINGS: CHEST: PULMONARY ARTERIES: There are no intra-arterial filling defects to suggest the presence of acute pulm onary emboli. LUNGS: There is no evidence of pulmonary infarction. There are no pleural effusions. MEDIASTINUM: There is no hilar nor mediastinal adenopathy. Visualized thyroid unremarkable. CARDIAC: Heart size is normal. There is no pericardial effusion. There is no significant shift of t he interventricular septum.Caliber of the thoracic aorta is within normal limits. OSSEOUS: No significant osseous lesions.. ABDOMEN: There is no ascites. LIVER: There are no focal hepatic lesions nor dilatation of intrahepatic ducts. GALLBLADDER/BILIARY: No obvious gallbladder pathology. CBD is not dilated. PANCREAS: No evidence of pancreatic mass nor dilatation of the pancreatic duct. SPLEEN: Spleen is not enlarged. There are no intrasplenic lesions. Splenic and portal veins are maya nt. ADRENALS: There are no significant adrenal masses. KIDNEYS:No cysts evident. No calculi nor hydronephrosis. No solid renal masses. ABDOMINAL AORTA: Abdominal aorta is not enlarged. No significant atherosclerotic disease.. Aortoili ac segments are patent. LYMPH NODES: There is no retroperitoneal or para-aortic adenopathy. ABDOMINAL WALL/GI: No evidence of significant anterior abdominal wall hernia. No bowel obstruction. PELVIS: LYMPH NODES: There is no intrapelvic nor inguinal adenopathy. GI: No evidence of appendicitis.No evidence of sigmoid diverticulitis. URINARY BLADDER: No calculi nor masses evident REPRODUCTIVE: Prostate normal size. Seminal vesicles unremarkable. OSSEOUS: No significant osseous lesions. IMPRESSION: 1. No evidence of acute pulmonary emboli nor pulmonary infarction. 2. There are no pleural effusions. 3. No significant findings in the abdomen and pelvis. 4. Aortoiliac segments are patent 5. There is no ascites. No significant adenopathy. RADIATION DOSE DELIVERED: 1,108.63mGy.cm Total DLP DATA REPOSITORY: All CT scans at this facility are submitted to the National Radiology Data Registry (NRDR) Dose Index Registry (DIR) with the [employer] (ACR). RADIATION OPTIMIZATION: All CT scans at this facility use at least one of these dose optimization te chniques: automated exposure control; mA and/or kV adjustment per patient size (includes targeted exa ms where dose is matched to clinical indication); or iterative reconstruction.
[2021-01-09 01:26] VITALS: BP 126/87; PULSE 110; RESP 16; TEMP 36.3; O2SAT 98
--- NOTE | 2021-01-09 01:30 | ED.GENADUL_ITS ---
Discharge Plan Disposition Patient Disposition: HOME Condition: Stable Discharge Details Chief Complaint: FlankPain Clinical Impression: Back pain, thoracic, Flank pain Primary Care Provider: Unknown,Unknown ED Provider: Mayo Russell Home Meds and New Rx's Prescriptions: No Action famotidine [Pepcid] 20 mg tablet 20 mg PO DAILY Qty: 14 RF: 0 Discharge Instructions Instructions: Back Pain (ED) Additional Instructions: your blood work and cat scan did not show any concerning findings you can take 1000mg tylenol and 600mg ibuprofen every 6 hours for pain as needed follow up with your primary care provider within 1-2 weeks especially if pain continues return to the emergency department if you have severe worsening pain, difficulty breathing or feel more ill Stand Alone Forms: Work Release Medical Decision Making 25 yo that identifies as female comes in with chief complaint of 7 hours of left flank and mid to upper left sided back pain. Was working at [employer] when this started and denies any known injuries and did not strain or perform any heavy lifting per the patient. States the pain comes and goes and that deep breaths make it hurt more. Denies ivdu, fevers, chills, difficulty urinating or weakness. Localizes the pain to the left cva area and has no midline back pain, erythema or warmth, clear lungs, is noted to be mildly tachycardic with normal lung and heart sounds. Could be musculoskeletal pain but given location and description of pain wells score is moderate will obtain CTA and also ct to evaluate for possible kidney stone vs renal infarct. HAs no midline pain, no saddle anesthesia and normal reflexes, sensation and normal strength in lower extremities and upper extremities so doubt entities such as cauda equina or spinal epidural abscess. labs and imaging unremarkable, heart rate now 80 and she is in no distress resting comfortably in bed. No abdominal tenderness and stable exam. Suspect musculoseletal pain, advised to f/u with pcp and return precautions given Differential Diagnosis Differential Diagnosis: spasm, strain, PE, kidney stone Medical Records Medical records reviewed: Yes I reviewed the patient's medical records. Imaging Data Radiologic Study: Attestation: I personally reviewed and interpreted this imaging study as follows: Imaging: CT Scan Radiologist's impression: no acute findings Lab Data Lab results reviewed: Yes I reviewed the patient's lab results. ECG Data Attestation: I personally reviewed and interpreted this ECG (s) as follows: Prior ECG tracings: not available for review Interpretation: sinus rhythm, rate of 95, pr 124, qtc 400 HPI General Mode of arrival: ambulatory . Date/Time Provider Initiated Documentation: 01/09/21 01:19 . Limitations to Documentation: no limitations . Information obtained by: patient . History of Present Illness 25 year old M presents to the emergency department with the chief complaint of back pain, described as moderate, with intensity rated at 7. Quality is described as sharp, Patient started experiencing this hour(s) (7) and it has been intermittent. No relieving factors improve symptom(s), Other factors that worsen symptoms (deep breathing) . Patient notes no other symptoms.. Patient did receive the following treatments prior to arrival, none Related Data Home Medications Medication Instructions Recorded Confirmed famotidine [Pepcid] 20 mg PO DAILY #14 tab 12/04/20 Previous Rx's Medication Instructions Recorded famotidine [Pepcid] 20 mg PO DAILY #14 tab 12/04/20 Allergies Allergy/AdvReac Type Severity Reaction Status Date / Time apple Allergy Mild Unverified 01/09/21 02:38 peach Allergy Mild Unverified 01/09/21 02:38 horses Allergy Severe Anaphylaxsi Uncoded 01/09/21 02:38 s animal dander Allergy Mild sneezing Uncoded 01/09/21 02:38 General Stated Complaint: FlankPain JENNIFER: 3 Review of Systems All systems reviewed & are unremarkable except as noted in HPI and below Constitutional Constitutional: Denies chills, Denies fever(s) and Denies weakness Cardiovascular Cardiovascular: Denies dyspnea Respiratory Respiratory: Denies cough and Denies dyspnea Gastrointestinal Gastrointestinal: Denies abdominal pain, Denies nausea and Denies vomiting Musculoskeletal Musculoskeletal: Denies joint swelling Neurologic Neurologic: Denies weakness [facility] Medical History Anxiety Social History Smoking/Tobacco Use Status: Current-Occasional Tobacco Type: cigarettes Smoking risk assessment performed?: Yes Alcohol Intake: current Alcohol Intake frequency: holidays/special occasions only Drug use: Daily Substance use type: marijuana current occupation: [employer] Current gender identity: trans [id number] Other: Uses she/her pronouns Do you feel safe at home: Yes Do you feel safe in your relationship?: Yes Exam Const General: no acute distress Orientation: alert HENMT Head: normal to inspection Ears: external ears normal General nose exam: external nose normal Mouth: moist mucous membranes Eyes General: appearance normal, both eyes and all related structures Neck Neck: normal visual inspection Resp Effort & Inspection: normal respiratory effort and able to speak in complete sentences Cardio Rate: tachycardic Back/Spine/Pelvis Back: No mass, No erythema and No warmth Skin General skin exam: no rashes or lesions noted Neuro General: patient alert and patient oriented x3 Extrem General: normal to inspection Psych Mental Status: mental status grossly normal Course Vital Signs Vital signs: Vital Signs Temperature 36.3 C L 01/09/21 01:26 Pulse 110 H 01/09/21 01:26 Respiratory Rate 16 01/09/21 01:26 Blood Pressure 126/87 01/09/21 01:26 Pulse Oximetry 98 01/09/21 01:26 Temperature 36.3 C L 01/09/21 01:26 Temperature Source Tympanic 01/09/21 01:26 Pulse 110 H 01/09/21 01:26 Respiratory Rate 16 01/09/21 01:26 Respiratory Effort 01/09/21 01:26 Blood Pressure 126/87 01/09/21 01:26 Blood Pressure Position Sitting 01/09/21 01:26 Pulse Oximetry 98 01/09/21 01:26 Oxygen Delivery Method Room Air 01/09/21 01:26 Oxygen Flow Rate 0 01/09/21 01:26 Pain Level 4 01/09/21 01:26
--- NOTE | 2021-01-09 01:30 | RT.EKG_ITS ---
APPROVED REPORT Exam: Resting ECG Patient Location: E HR:95 bpm ECG Measurements Heart Rate 95 AXIS WA 124 P 71 QRSd 87 QRS 76 QT 318 T -56 QTc 400 Conclusion Sinus rhythm...normal P axis, V-rate 60- 99
[2021-01-09 01:56] LABS: Abs Immature Grans 0.02 10^3/uL (0.0-0.06); Absolute Basophil Count 0.09 10^3/uL (0.0-0.2); Absolute Eosinophil Count 0.18 10^3/uL (0.0-0.7); Absolute Lymphocyte Count 4.28 10^3/uL (1.2-3.4); Absolute Monocyte Count 0.95 10^3/uL (0.1-0.8); Absolute Neutrophil Count 4.73 10^3/uL (1.2-6.7); Basophils % 0.9; Eosinophils % 1.8; HCT 45.6 % (40.0-50.0); HGB 15.8 g/dL (13.5-17.5); Immature Grans % 0.2; Lymphocytes % 41.8; MCH 29.1 pg (27.0-33.0); MCHC 34.6 % (32.0-36.0); MPV 10.3 fL (8.0-11.0); Monocytes % 9.3; Nucleated RBC 0 %; Platelet Count 290 10^3/uL (130-400); RBC 5.43 10^6/uL (4.36-5.78); RDW 11.9 % (11.8-14.1); RDW-SD 35.8 fL; WBC 10.25 10^3/uL (4.4-10.8)
[2021-01-09 01:59] LABS: Bilirubin Small (Negative); Blood Negative (Negative); Clarity Clear (Clear); Glucose Negative (Negative); Ketones Negative (Negative); Leukocyte Esterase Negative (Negative); Nitrite Negative (Negative); Specific Gravity >= 1.030 (1.005-1.025)
[2021-01-09 02:10] LABS: Bacteria Rare HPF (Negative); C & S Indicated? No; Casts Negative LPF (Negative); Crystals Negative HPF (Negative); Epithelial Cells Rare HPF (Negative); Mucus Negative (Negative); RBC Negative HPF (0-2); WBC Negative HPF (0-5)
[2021-01-09] MEDS: Normal Saline 1,000 ML 1000 ML IV (02:10)
[2021-01-09 02:13] LABS: ALT 24 U/L (16-63); AST 15 U/L (15-37); Albumin 4.7 g/dL (3.4-5.0); Alkaline Phosphatase 62 U/L (46-116); Anion Gap 10.7 mmol/L (3-11); BUN 18 mg/dL (7-18); Bilirubin, Direct 0.2 mg/dL (0.0-0.2); Bilirubin, Total 0.6 mg/dL (0.2-1.0); CO2 28.3 mmol/L (21.0-32.0); Calcium 9.3 mg/dL (8.5-10.1); Chloride 103 mmol/L (98-107); Glucose 88 mg/dL (74-106); Lipase 165 U/L (73-393); Potassium 3.5 mmol/L (3.5-5.1); Sodium 142 mmol/L (136-145); Total Protein 8.2 g/dL (6.4-8.2)
[2021-01-09] MEDS: Omnipaque 350 MG/ML 100 ML BTL IJ (02:15)
[2021-01-09 02:16] LABS: Troponin I < 0.05 ng/mL (<0.06)
[2021-01-09] MEDS: Normal Saline Flush 10 ML SYR IVP (02:16)
[2021-01-09] MEDS: Normal Saline - Diluent 50 ML VIAL IV (02:16)
[2021-01-09 02:17] LABS: INR 1.1 (0.9-1.1); PTT Activated 24.5 sec (21.0-27.5); Prothrombin Time 11.1 sec (9.3-11.0)
--- NOTE | 2021-01-09 03:04 | DI.VRAD_ITS ---
PROCEDURE INFORMATION: Exam: CT Angiography Chest With Contrast Exam date and time: 01/09/2021 1:57 AM Age: 25 years old Clinical indication: Abdominal pain; Localized; Right-sided chest pain; Patient HX: Right sided chest and abdominal/back pain; Additional info: HX of kidney stones TECHNIQUE: Imaging protocol: Computed tomographic angiography of the chest with contrast. 3D rendering (Not supervised by radiologist): MIP and/or 3D reconstructed images were created by the technologist. Radiation optimization: All CT scans at this facility use at least one of these dose optimization techniques: automated exposure control; mA and/or kV adjustment per patient size (includes targeted exams where dose is matched to clinical indication); or iterative reconstruction. Contrast material: OMNIPAQUE 350; Contrast volume: 61 ml; Contrast route: INTRAVENOUS (IV); COMPARISON: No relevant prior studies available. FINDINGS: Pulmonary arteries: Normal. No pulmonary emboli. Aorta: Unremarkable. No aortic aneurysm. No aortic dissection. Lungs: Unremarkable. No consolidation. No masses. Pleural spaces: Unremarkable. No pneumothorax. No pleural effusion. Heart: Unremarkable. No cardiomegaly. No pericardial effusion. Lymph nodes: Unremarkable. No enlarged lymph nodes. Bones/joints: Unremarkable. No acute fracture. Soft tissues: Unremarkable. IMPRESSION: No acute findings. PROCEDURE INFORMATION: Exam: CT Angiography Abdomen With Contrast Exam date and time: 01/09/2021 1:57 AM Age: 25 years old Clinical indication: Abdominal pain; Localized; Right-sided chest pain; Patient HX: Right sided chest and abdominal/back pain; Additional info: HX of kidney stones TECHNIQUE: Imaging protocol: Computed tomographic angiography images of the abdomen with intravenous contrast material. Radiation optimization: All CT scans at this facility use at least one of these dose optimization techniques: automated exposure control; mA and/or kV adjustment per patient size (includes targeted exams where dose is matched to clinical indication); or iterative reconstruction. Contrast material: OMNIPAQUE 350; Contrast volume: 61 ml; Contrast route: INTRAVENOUS (IV); COMPARISON: No relevant prior studies available. FINDINGS: Aorta: No aortic aneurysm. No aortic dissection. Celiac trunk and mesenteric arteries: No occlusion or significant stenosis. Renal arteries: No occlusion or significant stenosis. Liver: Normal. No mass. Gallbladder and bile ducts: Normal. No calcified stones. No ductal dilation. Pancreas: Normal. No ductal dilation. Spleen: Normal. No splenomegaly. Adrenals: Normal. No mass. Kidneys and ureters: Normal. No hydronephrosis. Stomach and bowel: Unremarkable. No obstruction. No mucosal thickening. Lymph nodes: Unremarkable. No enlarged lymph nodes. Intraperitoneal space: Unremarkable. No free air. No significant fluid collection. Bones/joints: Unremarkable. No acute fracture. No dislocation. Soft tissues: Unremarkable. IMPRESSION: Unremarkable CTA abdomen. Dictated and Authenticated by: Amari Paz MD. Ordering:YOGI Huber MD
== END 2021-01-09 03:21 | disposition home or self-care (01) ==
PROVIDERS: Emergency Provider Emergency Medicine
DX: M54.6 Pain in thoracic spine (principal); R10.9 Unspecified abdominal pain; R07.89 Other chest pain
CPT/HCPCS: 71275; 74177; 80053; 83690; 93005; 99285; 81003; 81015; 82248; 83735; 84484; 85025; 85610; 85730; 93010; 99283; J3490

== ENCOUNTER 2023-10-25 21:04 | Emergency (ER) | payer SELFPAY ==
[2023-10-25 21:10] VITALS: BP 138/73; PULSE 82; RESP 16; TEMP 36.2; O2SAT 97
--- NOTE | 2023-10-25 21:15 | DI.RAD_ITS ---
Exam(s) XR ANKLE RT COMPLETE EXAM: XR ANKLE RT COMPLETE CLINICAL HISTORY: R ankle twist. TECHNIQUE: 2D digital imaging was performed of the right ankle. Three images were obtained. AP, la teral and oblique views were obtained. COMPARISON: No exams were available for comparison FINDINGS: BONES: No acute fracture is present. No bony destructive lesion is seen. JOINTS: The ankle mortise is normally aligned. SOFT TISSUE: Normal. IMPRESSION: Unremarkable radiographs of the right ankle. DATA REPOSITORY: RADIATION DOSE DELIVERED:
--- NOTE | 2023-10-25 21:24 | W.ED.GENAD ---
HPI General Stated Complaint: Orthopedic JENNIFER: 4 Date/Time Provider Initiated Documentation: 10/25/23 21:11. HPI Narrative: 28 year-old patient, biologically male, identifies as Malcom, presents to ED today by POV/ambulating with a chief complaint of rolled their R ankle with onset earlier tonight. 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 Quality described as pain with weight-bearing, nausea with weight-bearing due to pain, no radiation to numbness/tingling, swelling/deformity, inability to ambulate. Severity is described as severe. Palliating factors include nothing specific attempted. Provoking factors include nothing specific. Patient not anticoagulated. Related Data Home Medications Medication Instructions Recorded Confirmed famotidine 20 mg tablet (Pepcid) 20 mg PO DAILY #14 tabs 12/04/20 10/25/23 Previous Rx's Medication Instructions Recorded famotidine 20 mg tablet (Pepcid) 20 mg PO DAILY #14 tabs 12/04/20 Allergies Allergy/AdvReac Type Severity Reaction Status Date / Time apple Allergy Mild Unverified 10/25/23 21:15 peach Allergy Mild Unverified 10/25/23 21:15 horses Allergy Severe Anaphylaxsi Uncoded 10/25/23 21:15 s animal dander Allergy Mild sneezing Uncoded 10/25/23 21:15 Review of Systems All systems reviewed & are unremarkable except as noted in HPI and below PFSH All Active Problems (Updated 10/25/23 @ 21:40 by HANNAH Douglass) Sprain of right ankle (Acute) Flank pain (Acute) Back pain, thoracic (Acute) Medical History Anxiety Social History Smoking/Tobacco Use Status: Current-Occasional Tobacco Type: cigarettes Smoking risk assessment performed?: Yes Alcohol Intake: current Alcohol Intake frequency: holidays/special occasions only Drug use: Daily Substance use type: marijuana current occupation: [employer] Current gender identity: trans [id number] Other: Uses she/her pronouns Do you feel safe at home: Yes Do you feel safe in your relationship?: Yes Exam Narrative Exam Narrative: GENERAL APPEARANCE: Well-nourished, non-toxic, awake and alert, atraumatic, no acute distress. SKIN: Warm, pink, dry, intact, without rashes/lesions/ulcerations. HEAD: Normocephalic, atraumatic, normal hair distribution for gender/age. EYES: Pupils PERRLA, EOMs intact without nystagmus, normal conjunctiva, no exudates on lids/lashes. ENT: Nares patent, no circumoral cyanosis, no facial swelling NECK: Supple, trachea midline, painless cervical ROM. LUNGS/CHEST: Non-labored respirations, normal A/P diameter, symmetrical expansion, no chest wall deformity HEART (CV/PV): No peripheral edema, no JVD. ABDOMEN: Soft, non-distended, no guarding. MSK: Normal ROM, no swelling/deformity to bilateral UEs or LEs, moving all extremities without weakness, no cyanosis, spine midline without tenderness, normal curvature. R LE: Mild tenderness to palpation without crepitus to the right ankle diffusely, sensation intact distal, pedal pulse intact, plantar dorsi flexion limited only to pain, tolerating weightbearing NEURO: Mental Status AAOx4 - alert to person, place, time, events No facial droop, no forehead involvement. Motor: No focal weakness - strength 5/5 in bilateral UEs and LEs, proximal and distal, symmetric. Sensory: sensation intact to light touch globally. Gait normal: patient ambulated without ataxia into ED room. PSYCH: euthymic, cooperative, pleasant, appropriate speech Course Vital Signs Vital signs: Vital Signs Temperature 36.2 C L 10/25/23 21:10 Pulse 82 10/25/23 21:10 Respiratory Rate 16 10/25/23 21:10 Blood Pressure 138/73 10/25/23 21:10 Pulse Oximetry 97 10/25/23 21:10 Temperature 36.2 C L 10/25/23 21:10 Temperature Source Tympanic 10/25/23 21:10 Pulse 82 10/25/23 21:10 Respiratory Rate 16 10/25/23 21:10 Respiratory Effort Normal, Non-Labored 10/25/23 21:18 Blood Pressure 138/73 10/25/23 21:10 Blood Pressure Position Sitting 10/25/23 21:10 Pulse Oximetry 97 10/25/23 21:10 Oxygen Delivery Method Room Air 10/25/23 21:10 Oxygen Flow Rate 0 10/25/23 21:10 Pain Level 6 10/25/23 21:10 Comment 6/10 bearing weight and 2/10 at rest 10/25/23 21:10 Medical Decision Making This dictation utilizes [id number] dictation software and may contain unedited grammatical errors. 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 Patient tolerating weight-bearing. Patients' medical history: noncontributory. Family and social history: noncontributory. Pertinent exam findings / vital signs include R LE: Mild tenderness to palpation without crepitus to the right ankle diffusely, sensation intact distal, pedal pulse intact, plantar dorsi flexion limited only to pain, tolerating weightbearing. Differential / pathologies of concern include Sprained Ankle, not Fracture. Diagnostic studies of: -XR R Ankle. -no acute findings Interventions of: -key wrap ankle. ED Course/Assessment/Plan: Patient has a right ankle sprain, was tolerating weightbearing prior, counseled on RICE therapy and therapeutic dosing of Tylenol and ibuprofen. Findings not consistent with fracture or neurovascular compromise. Disposition of sprain of right ankle. Patient verbalized understanding of the plan and return to ED criteria and engaged in shared decision making. Medical Records Medical records reviewed: Yes I reviewed the patient's medical records. Imaging Data Radiologic Study: Imaging: X-Ray My impression: No acute fracture, mortise aligned Quality:SDOH Health Related Social Needs: No Data to Display Discharge Plan Disposition Patient Disposition: Home Discharge Details Clinical Impression: Sprain of right ankle Primary Care Provider: Unknown,Unknown ED Provider: Kali Carlson Home Meds and New Rx's Prescriptions: No Action famotidine [Pepcid] 20 mg tablet 20 mg PO DAILY Qty: 14 0RF Discharge Instructions Instructions: Ankle Sprain (ED) Additional Instructions: You were seen in the emergency department for your twisted right ankle, there is no fracture on x-ray, you have a sprained ankle. Please rest, compress, elevate and ice the ankle tonight, please use therapeutic dosing of Tylenol (acetamenophen) & Advil (ibuprofen) in an alternating fashion as follows: Take 1000mg of Tylenol every 6 hours without missing doses- that is 4 times per day. Shelter in between the Tylenol dosings, take 400-600mg of Advil also on a 6 hour schedule, that is also 4 times per day. The daily maximum dosing of Tylenol is 4000mg, and the daily maximum dosing of Advil is 2400mg. This is safe to do for weeks. Please note that some common cold medications & prescription pain medications may contain acetamenophen and you need to read OTC drug labels and factor that in to maximum daily dosings. Your ankle should improve in the next 3 to 4 days, you should be able to ambulate normally by tomorrow with only slight pain but this is not causing you any permanent damage and will not impair your healing significantly as long as you can ice and elevate in the evenings and take adequate anti-inflammatories and Tylenol to control pain and inflammation.
--- NOTE | 2023-10-25 22:40 | DI.VRAD_ITS ---
PROCEDURE INFORMATION: Exam: XR Right Ankle Exam date and time: 10/25/2023 9:31 PM Age: 28 years old Clinical indication: Injury or trauma; Other: Twisted ankle; Work related; Injury date: 10/25/23; Injury details: R ankle pain TECHNIQUE: Imaging protocol: Radiologic exam of the right ankle. Views: 3 or more views. COMPARISON: No relevant prior studies available. FINDINGS: Bones/joints: Normal. Soft tissues: Normal. IMPRESSION: No acute findings. Dictated and Authenticated by: Sam Jacinto MD. Ordering:ASTRID Bass MD
== END 2023-10-25 21:47 | disposition home or self-care (01) ==
PROVIDERS: Emergency Provider Physician Assistant
DX: M25.571 Pain in right ankle and joints of right foot (principal); S93.401A Sprain of unspecified ligament of right ankle, initial encounter; R42 Dizziness and giddiness; W18.49XA Other slipping, tripping and stumbling without falling, initial encounter
CPT/HCPCS: 99283; 73610

== ENCOUNTER 2024-09-29 11:13 | Emergency (ER) | payer OTHER, SELFPAY ==
[2024-09-29 11:20] VITALS: BP 129/85; PULSE 78; RESP 13; TEMP 36.6; O2SAT 96
--- NOTE | 2024-09-29 13:14 | W.ED.GENAD ---
Discharge Plan Disposition Patient Disposition: Home Condition: Stable Discharge Details Clinical Impression: Depression with suicidal ideation Primary Care Provider: Unknown,Unknown ED Provider: Viola Wallace Home Meds and New Rx's Prescriptions: No Action famotidine [Pepcid] 20 mg tablet 20 mg PO DAILY Qty: 14 0RF Discharge Instructions Instructions: Depression, Adult ED Additional Instructions: You were seen in the emergency department today for evaluation of thoughts of suicide without plan or intent. In our department you had a full physical evaluation and met with a member of our social work team. They provided you with safety planning and outpatient resources, and at this time it is safe for you to go home. Please follow-up with these resources and continue to follow the safety plan. You can also always return to the emergency department if you have any concerns, especially if you have worsening suicidal thoughts or feelings, fever or chills, change in responsiveness or injury, or any other symptoms that cause you concern. Thank you for allowing us to be part of your care. HPI General Mode of arrival: ambulatory. Date/Time Provider Initiated Documentation: 09/29/24 11:23. Limitations to Documentation: no limitations. Information obtained by: patient and old records reviewed. HPI Narrative: HPI: This is a 29-year-old female patient, presenting for evaluation of suicidal thoughts and feelings. She states that she has had increased stress in the last several years, and this morning woke up and had the distinct sensation that she wishes she had not woken up, and states that while she does not specifically want to she feels very hopeless and overwhelmed. 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 She did not have any intention to act on these thoughts of self-harm, has not had any recent self-harm in the last several years, states that she voluntarily presented to care given her lack of resources in the outpatient environment. She states that she does not take any manage medications for management of her mental health, does use nicotine and marijuana daily. She has had no suicide attempts recently, has a stable housing situation. She has not made any attempts to harm herself today and has not had any overdoses or ingestions. Exam: Gen: Awake and alert, in no apparent distress HEENT: Non-icteric sclera Neck: Supple Lungs: No apparent respiratory distress, normal respiratory effort. CV: Appears well perfused Abdomen: Non-distended MSK: Moves 4 extremities without apparent limitation in ROM Skin: Visualized skin without rashes, cyanosis. Neuro: Normal Gait, no obvious focal deficits or facial asymmetry. Speaks in full, clear sentences. Psych: Appropriate for situation. Suicidal thoughts but not intent or plan, forward thinking and appropriate insight. MDM: This is a 29-year-old female patient presenting for evaluation of suicidal thoughts. Differential includes but is not limited to primary psychiatric disturbance, the patient has not made any attempts at self-harm, and I have a low concern for medication effect, intoxication, withdrawal syndrome. The patient has no hemodynamic instability or medical problems to make me concerned for an organic cause of their suicidal ideation. The patient is voluntary, cooperative, and does not meet criteria for involuntary hold. A smart medical clearance form was completed, and the patient does not require any additional workup to meet criteria for medical clearance. We will reach out to [facility] . For evaluation. ED Course:[facility] met with the patient, and note that she does not have significant outpatient resources and these were provided to her. She is appropriate for safety planning and discharge to home, which was conducted with the social work specialist. At this time, the patient has had a full medical evaluation and is safe for discharge to home. They are hemodynamically stable, ambulatory, and tolerating PO. They are understanding of the follow-up plan and return precautions. They left our facility without incident. Viola Wallace MD Related Data Home Medications ?Medication ?Instructions ?Recorded ?Confirmed famotidine 20 mg tablet (Pepcid) 20 mg PO DAILY #14 tabs 12/04/20 09/29/24 Previous Rx's ?Medication ?Instructions ?Recorded famotidine 20 mg tablet (Pepcid) 20 mg PO DAILY #14 tabs 12/04/20 Allergies Allergy/AdvReac Type Severity Reaction Status Date / Time apple Allergy Intermediate Swelling/Ed Unverified 09/29/24 11:30 elio peach Allergy Intermediate Hives Unverified 09/29/24 11:30 horses Allergy Severe Anaphylaxsi Uncoded 09/29/24 11:30 s animal dander Allergy Mild sneezing Uncoded 09/29/24 11:30 General Stated Complaint: PsychEval JENNIFER: 2 Course Vital Signs Vital signs: Vital Signs Temperature 36.6 C 09/29/24 11:20 Pulse 78 09/29/24 11:20 Respiratory Rate 13 09/29/24 11:20 Blood Pressure 129/85 09/29/24 11:20 Pulse Oximetry 96 09/29/24 11:20 Temperature 36.6 C 09/29/24 11:20 Temperature Source Oral 09/29/24 11:20 Pulse 78 09/29/24 11:20 Respiratory Rate 13 09/29/24 11:20 Respiratory Effort Normal, Non-Labored 09/29/24 11:31 Blood Pressure 129/85 09/29/24 11:20 Blood Pressure Position Sitting 09/29/24 11:20 Pulse Oximetry 96 09/29/24 11:20 Oxygen Delivery Method Room Air 09/29/24 11:20 Oxygen Flow Rate 0 09/29/24 11:20 Pain Level 0 09/29/24 11:20 Lab/Test Results Lab/Test Results: POC- Test(urine) Negative Medical Decision Making Quality:SDOH Health Related Social Needs: No Data to Display PFSH All Active Problems (Updated 09/29/24 @ 14:50 by Viola Wallace MD) Depression with suicidal ideation (Acute) Flank pain (Acute) Back pain, thoracic (Acute) Medical History Anxiety Social History Smoking/Tobacco Use Status: Current-Occasional Tobacco Type: cigarettes Smoking risk assessment performed?: Yes Alcohol Intake: current Alcohol Intake frequency: holidays/special occasions only Drug use: Daily Substance use type: marijuana Details: Pt states she smokes marijuana daily 09/29/24 current occupation: [employer] Current gender identity: trans [id number] Other: Uses she/her pronouns Do you feel safe at home: Yes Do you feel safe in your relationship?: Yes
--- NOTE | 2024-09-29 16:12 | PDOC.MHCN_ITS ---
Date of service: 09/29/24 Time of Service: 14:30 PHQ-9 Over the last 2 weeks, how often have you been bothered by any of the following problems? 1. Little interest or pleasure in doing things: several days 2. Feeling down, depressed, or hopeless: not at all 3. Trouble falling or staying asleep, or sleeping too much: not at all 4. Feeling tired or having little energy: not at all 5. Poor appetite or overeating: not at all 6. Feeling bad about yourself - or that you are a failure or have let yourself and your family down: several days 7. Trouble concentrating on things, such as reading the newspaper or watching television: nearly every day 8. Moving or speaking so slowly that other people could have noticed? - Or the opposite - being so fidgety or restless that you have been moving around a lot more than usual: not at all 9. Thoughts that you would be better off or of hurting yourself in some way: not at all Total score: 5 If you checked off any problems, how difficult have these problems made it for you to do your work, take care of things at home, or get along with other people?: not difficult at all Source: Developed by Drs. Neal Lopez, Farheen Salazar, Ralph Mueller and colleagues, with an educational zoey from [employer]. Suicide Severity Rate CSSRS Have you wished you were or wished you could go to sleep and not wake up?: Yes Have you actually had any thoughts of killing yourself?: No CSSRS2 Have you been thinking about how you might do this?: No Have you had these thoughts and had some intention of acting on them?: No Have you started to work out or worked out the details of how to kill yourself? Do you intend to carry out this plan?: No CSSRS3 Have you ever done anything, started to do anything or prepared to do anything to end your life?: Yes CSSRS4 Was this within the past three months?: No Screening Score Total Score: 4 Screening: Positive Mental Health Emergency Note Release [facility] release signed:: Yes Reason for Visit Bryan's preferred name is Joseph and they use she/her pronouns. Joseph is not known to [facility] or this contract technical writer prior to today. There was a delay in response time for this assessment due to staffing ad an issue with [facility] EMR system. Joseph is presenting today due to passive SI In the last 2 weeks has the pt presented for ES prior to today?: Unknown Client Information Client is: New Well Housed: Yes Non Suicidal Self Injury Current: No History: No Safety Risk/Harm to Self or Others Current Ideation to Harm Self or Others: No Risk: Does risk to harm exist?: No Risk: N/A Duty to warn indicated: No Asssessment/Mental Status Appearance: Disheveled Attitude: Cooperative Behavior: Unremarkable Speech: Normal Affect: Cogruent with mood Mood: Stressed and Anxious Thought process: Unremarkable Hallucinations: No evidence Delusions: No evidence Attention: Unremarkable Perception: Not impaired Orientation: Fully orientated Memory: Intact Insight: Good Judgement: Good Neurovegetative Symptoms Sleep: Increase Interests: No change Energy: No change Libido: Not applicable Substance Use: Do you use nicotine?: Yes Have you used substances in the last 7 days?: No Additional Issues: Assaultive/Threatening Behavior: No Medical Concerns: No Client engaged in active self harm w/weapon: No Threatening to run away: No Child reported abuse/neglect: No Voluntarily presenting for services: Yes Domestic violence is a concern: No Extreme Psychosis or extreme behavior is present: No Impression This client's preferred name is Joseph and they use she/her pronouns. Joseph pr esents to this contract technical writer sitting in their bed, in paper scrubs, disheveled. Joseph reports that she has been feeling dread today and been thinking about thoughts of her not wanting to wake up this morning. Joseph reported that she has been having these thoughts only for today but since being at the hospital they have been going away. Joseph reports that she is at her breaking points from the last 5 years, Joseph reports a lot of stress as she is a [place] in the [place], she struggled through COVID, and struggled to have a work/life balance. Joseph reports that she now works at [employer] and has a good work/life balance. Joseph denies any current thoughts of wanting to harm herself and reports her last thought was at 19 years old and her last attempt was at 17 years old. Joseph denies HI and NSSI currently as well. Joseph was able to identify natural supports, coping skills, and the need for outpatient treatment. This contract technical writer will complete a referral for therapy and case management and will email Joseph the community list like spoken about in the assessment.? Resources Reosurces reviewed and given:: [facility], Community therapist and [facility] Plan/Disposition Recommended Disposition: [facility] Services [facility] Services: Therapy and Other (Case managment), Therapy and Community resources (Front Porch ). Plan: Joseph will be released on a safety plan with a plan to call [facility], [facility], or the front porch as needed until she can be set up with a therapist. Person reported agreement to plan: Yes Reports/communication Outcome discussed with: ED/Personnel
== END 2024-09-29 15:13 | disposition home or self-care (01) ==
PROVIDERS: Emergency Provider Emergency Medicine
DX: R45.851 Suicidal ideations (principal); F32.A Depression, unspecified; F41.9 Anxiety disorder, unspecified; F17.210 Nicotine dependence, cigarettes, uncomplicated
CPT/HCPCS: 00123; 81025; 96127; 99284